=== PATIENT | male | born 1970 | race Caucasian/White ===

== ENCOUNTER 2020-01-18 14:56 | Emergency (ER) | payer OTHER, BC ==
[2020-01-18] MEDS ORDERED: Diphtheria,Pertussis(Acell),Tetanus Vaccine 0.5 ML Syringe IM ONE (15:20)
--- NOTE | 2020-01-18 16:30 | CR ---
PROCEDURE INFORMATION: Exam: XR Right Hand Exam date and time: 01/18/2020 3:37 PM Age: 49 years old Clinical indication: Pain; Swelling; Hand; Right; Additional info: Crushed right hand in a fan TECHNIQUE: Imaging protocol: XR Right hand. Views: 3 or more views. COMPARISON: No relevant prior studies available. FINDINGS: Bones/joints: No acute fracture. Soft tissues: Unremarkable. IMPRESSION: No acute osseous process. Thank you for allowing us to participate in the care of your patient. Dictated and Authenticated by: Franc Combs MD 01/18/2020 5:04 PM Central Time ([place] & [place]) KAJAL
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
== END 2020-01-18 16:50 | disposition home or self-care (01) ==
LOC: JD.ED 14:56
DX: S60.221A Contusion of right hand, initial encounter (principal); I10 Essential (primary) hypertension; J45.909 Unspecified asthma, uncomplicated; F17.210 Nicotine dependence, cigarettes, uncomplicated; Z23 Encounter for immunization; Z88.0 Allergy status to penicillin; Z79.899 Other long term (current) drug therapy; W31.89XA Contact with other specified machinery, initial encounter
CPT/HCPCS: 73130-26-RT; 73130-RT; 90471; 90715; 99282; 99283